=== PATIENT | male | born 1995 | race Caucasian/White ===

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

== ENCOUNTER 2017-05-04 20:05 | Emergency (ER) | payer BC ==
[~2017-05-04] VITALS: Ht 176.5 cm; Wt 78.6 kg
[~2017-05-04 20:05] MED LIST: AMPH10TA2 PO; AMPH30CA3 PO
[2017-05-04 20:16] VITALS: TEMP 36.6; Ht 176.5 cm; Wt 78.6 kg
--- NOTE | 2017-05-04 20:43 | EMERGENCY ROOM VISIT NOTE ---
History Report prepared by Tu: Dusty Middleton Under the Supervision of: Dr. Addy Bernstein M.D. First contact with patient: 20:30 Chief Complaint: CARDIAC ASSESSMENT Stated Complaint: CHEST PAIN History of Present Illness The patient is a 22 year old male who presents to the Emergency Room with complaints of episodes of chest pain that started 2 weeks ago. He says that the episodes of chest pain can last sometimes for a few hours at a time, and when the pain is there, it waxes and wanes. The patient states that the pain stays around a 5 out of 10 in severity, and can get up to a 7 or 8 out of 10. He notes that the pain does not radiate from the center of his chest. The patient says that he almost passed out in class today, so he went to [facility], and had an EKG there, and was told to come here for further evaluation. The patient states that activity can bring on the pain, and laughing worsened the pain earlier today. He says that he has to rest when the pain comes on. He says that he never had pain like this before. The patient states that he went on a bus trip to [place] a month ago. He notes that he has not had any increased activity recently. The patient notes no family or personal history of blood clots in the legs or lungs. He says that he has ADHD, but has not taken his Adderall in 3 days. Source of History: patient Onset: 2 weeks ago Position: chest Symptom Intensity: can get up to a 7 or 8 out of 10 in severity Timing: other (episodes) Modifying Factors (Worsening): exertion, other (laughing) Modifying Factors (Relieving): rest Note: Associated symptoms: Almost passed out in class earlier today. No radiation of pain. Review of Systems See HPI for pertinent positives & negatives. A total of 10 systems reviewed and were otherwise negative. Past Medical & Surgical Medical Problems: (1) ADHD (attention deficit hyperactivity disorder) Family History No pertinent family history Social History Smoking Status: Never Smoker Marital Status: single Housing Status: lives with roommate Occupation Status: [employer] student Current/Historical Medications Scheduled Amphetamine-Dextroamphetamine 30MG (Adderall Xr 30MG), 30 MG PO QAM Scheduled PRN Amphetamine-Dextroamphetamine 10MG (Adderall 10MG), 10 MG PO HS PRN for PT DISCRETION Allergies Coded Allergies: No Known Allergies (Unverified , 05/04/17) Physical Exam Vital Signs Date Time Temp Pulse Resp B/P (MAP) Pulse Ox O2 Delivery O2 Flow Rate FiO2 05/04/17 22:38 73 112/71 97 05/04/17 21:26 76 121/72 96 Room Air 05/04/17 20:46 97 Room Air 05/04/17 20:30 87 05/04/17 20:16 36.6 91 18 115/78 95 Room Air Physical Exam GENERAL: Patient is in no acute distress. HEENT: No acute trauma, normocephalic atraumatic, mucous membranes moist, no nasal congestion, no scleral icterus. NECK: No stridor, no adenopathy, no meningismus, trachea is midline. LUNGS: Clear to auscultation bilaterally, no wheeze, no rhonchi, breath sounds equal. HEART: Without murmurs gallops or rubs, regular rate and rhythm. CHEST: Nontender chest wall. ABDOMEN: Soft, nontender, bowel sounds positive, no hernias, no peritonitis. EXTREMITIES: No cyanosis or edema, full range of motion of all the joints without pain or difficulty, no signs for acute trauma. NEUROLOGIC: Oriented x 3, no acute motor or sensory deficits, no focal weakness. SKIN: No rash, no jaundice, no diaphoresis. Medical Decision & Procedures ER Provider Diagnostic Interpretation: Radiology results as stated below per my review and radiologist interpretation: SINGLE VIEW CHEST CLINICAL HISTORY: Atypical chest pain. FINDINGS: An AP, portable, upright chest radiograph is obtained. No prior studies are available for comparison at the time of dictation. The examination is degraded by portable technique and patient rotation. The cardiomediastinal silhouette is unremarkable. The lungs and pleural spaces are clear. No pneumothorax is seen. The bony thorax is grossly intact. IMPRESSION: No active disease in the chest. Electronically signed by: Addy Johnson M.D. 05/04/2017 9:00 PM Dictated Date/Time: 05/04/2017 9:[address] ANGIOGRAM OF THE CHEST COMBO CLINICAL HISTORY: Atypical chest pain. COMPARISON STUDY: Chest x-ray dated 05/04/2017. TECHNIQUE: Before and following the IV administration of 116 cc of Optiray 320, CT angiogram of the chest was performed from the thoracic inlet to the upper abdomen utilizing the dissection protocol. Images are reviewed in the axial, sagittal, and coronal planes. 3-D MIPS images are created and assessed. IV contrast was administered without complication. A dose lowering technique was utilized adhering to the principles of ALARA. CT DOSE: 540.12 mGy.cm FINDINGS: Thyroid: Imaged portions of the thyroid gland are normal in size and attenuation. Thoracic aorta: No intramural hematoma is identified on the unenhanced series. The thoracic aorta is normal in caliber and demonstrates standard 3-vessel arch anatomy. No dissection is seen. The arch vessels are widely patent. Pulmonary vasculature: The pulmonary trunk is normal in caliber. There are no central filling defects identified in the pulmonary vessels to suggest pulmonary embolus. Note that this examination was not specifically protocoled to assess for pulmonary emboli. Heart: The heart is normal in size and configuration, and without pericardial effusion. Lungs and pleural spaces: The lungs and pleural spaces are clear. The trachea and central airways are patent. Mediastinum: There is no mediastinal lymphadenopathy. Nadya: Clear. Axillae: There is no axillary lymphadenopathy. Upper abdomen: Partially visualized upper abdominal viscera is within normal limits. Skeletal structures: No lytic or blastic bony lesions are seen. IMPRESSION: 1. There is no aneurysm or dissection identified involving the thoracic aorta. 2. The lungs are clear Electronically signed by: Addy Johnson M.D. 05/04/2017 9:58 PM Dictated Date/Time: 05/04/2017 9:55 PM Laboratory Results 05/04/17 20:25 05/04/17 20:25 Test 05/04/17 20:25 Red Blood Count 5.28 M/uL (4.7-6.1) Mean Corpuscular Volume 89.8 fL (80-100) Mean Corpuscular Hemoglobin 31.4 pg (25-34) Mean Corpuscular Hemoglobin Concent 35.0 g/dl (32-36) RDW Standard Deviation 38.9 fL (36.4-46.3) RDW Coefficient of Variation 11.8 % (11.5-14.5) Mean Platelet Volume 10.8 fL (7.4-10.4) Anion Gap 6.0 mmol/L (3-11) Est Creatinine Clear Calc Drug Dose 90.7 ml/min Estimated GFR () 89.4 Estimated GFR (Non- 77.1 BUN/Creatinine Ratio 14.9 (10-20) Calcium Level 9.2 mg/dl (8.5-10.1) Total Bilirubin 0.9 mg/dl (0.2-1) Aspartate Amino Transf (AST/SGOT) 18 U/L (15-37) Alanine Aminotransferase (ALT/SGPT) 23 U/L (12-78) Alkaline Phosphatase 71 U/L (45-117) Troponin I < 0.015 ng/ml (0-0.045) Total Protein 7.7 gm/dl (6.4-8.2) Albumin 4.4 gm/dl (3.4-5.0) Globulin 3.3 gm/dl (2.5-4.0) Albumin/Globulin Ratio 1.3 (0.9-2) D-dimer value was 64. Laboratory results reviewed by me. ECG Indication: chest pain Rate (beats per minute): 72 Rhythm: normal sinus Findings: no acute ischemic change, no ectopy ED Course 2030: The patient was evaluated in room C7. A complete history and physical exam was performed. 2215: Reevaluated the patient and he is resting. Discussed results and discharge instructions: he verbalized understanding and agreement. The patient is ready for discharge. Medical Decision Differential diagnosis includes but is not limited to musculoskeletal pain, pericarditis, SD, aortic dissection, PE, pneumonia. There is no leukocytosis or worrisome anemia. No significant electrolyte abnormality, kidney failure, hepatitis. D-dimer testing is negative. This certainly makes PE less likely. Chest film does not show evidence for mediastinal widening, pneumonia or pneumothorax. EKG shows a normal sinus rhythm, no acute ischemia. Cardiac enzyme testing 1 is not consistent with acute cardiac injury. Chest CT does not show evidence for aortic dissection. The patient presents with nonreproducible chest pain. The pain has been present for 2 weeks. Workup here is benign. The patient has been reassured. The pain is likely musculoskeletal. Conservative measures were advised. If worsening, he can return. Medication Reconcilliation Current Medication List: was personally reviewed by me Blood Pressure Screening Patient's blood pressure: Normal blood pressure Impression Primary Impression: Precordial chest pain Scribe Attestation The scribe's documentation has been prepared under my direction and personally reviewed by me in its entirety. I confirm that the note above accurately reflects all work, treatment, procedures, and medical decision making performed by me. Departure Information Dispostion Home / Self-Care Referrals [facility] (PCP) Forms IMPORTANT VISIT INFORMATION Patient Instructions My [facility] [address] Additional Instructions motrin 600 mg 3x per day for 5 days heat to the chest wall several times per day rest no exercise or strenuous activity for 1 week return if worsening imaging and lab testing and ECG today were all ok
[2017-05-04 20:48] LABS: HEMATOCRIT 47.4 % (42-52); MEAN CELL VOLUME 89.8 fL (80-100); MEAN CORPUSCULAR HEMOGLOBIN 31.4 pg (25-34); MEAN PLATELET VOLUME 10.8 fL (7.4-10.4); PLATELET COUNT 255 K/uL (130-400); RED BLOOD COUNT 5.28 M/uL (4.7-6.1); WHITE BLOOD COUNT 10.04 K/uL (4.8-10.8)
--- NOTE | 2017-05-04 21:01 | DIAGNOSTIC IMAGING REPORT ---
SINGLE VIEW CHEST CLINICAL HISTORY: Atypical chest pain. FINDINGS: An AP, portable, upright chest radiograph is obtained. No prior studies are available for comparison at the time of dictation. The examination is degraded by portable technique and patient rotation. The cardiomediastinal silhouette is unremarkable. The lungs and pleural spaces are clear. No pneumothorax is seen. The bony thorax is grossly intact. IMPRESSION: No active disease in the chest. Electronically signed by: Addy Johnson M.D. 05/04/2017 9:00 PM Dictated Date/Time: 05/04/2017 9:00 PM
[2017-05-04 21:06] LABS: ALT/SGPT 23 U/L (12-78); BLOOD UREA NITROGEN 20 mg/dl (7-18); BUN/CREATININE RATIO 14.9 (10-20); CALCIUM 9.2 mg/dl (8.5-10.1); CARBON DIOXIDE 27 mmol/L (21-32); CHLORIDE 107 mmol/L (98-107); CREATININE 1.32 mg/dl (0.60-1.40); GLUCOSE 86 mg/dl (70-99); SODIUM 140 mmol/L (136-145)
[2017-05-04 21:11] LABS: ALB/GLOB RATIO 1.3 (0.9-2); ALKALINE PHOSPHATASE 71 U/L (45-117); AST/SGOT 18 U/L (15-37)
[2017-05-04] MEDS ORDERED: OPTIRAY 320 IV PRN (21:45)
--- NOTE | 2017-05-04 21:59 | DIAGNOSTIC IMAGING REPORT ---
CT ANGIOGRAM OF THE CHEST COMBO CLINICAL HISTORY: Atypical chest pain. COMPARISON STUDY: Chest x-ray dated 05/04/2017. TECHNIQUE: Before and following the IV administration of 116 cc of Optiray 320, CT angiogram of the chest was performed from the thoracic inlet to the upper abdomen utilizing the dissection protocol. Images are reviewed in the axial, sagittal, and coronal planes. 3-D MIPS images are created and assessed. IV contrast was administered without complication. A dose lowering technique was utilized adhering to the principles of ALARA. CT DOSE: 540.12 mGy.cm FINDINGS: Thyroid: Imaged portions of the thyroid gland are normal in size and attenuation. Thoracic aorta: No intramural hematoma is identified on the unenhanced series. The thoracic aorta is normal in caliber and demonstrates standard 3-vessel arch anatomy. No dissection is seen. The arch vessels are widely patent. Pulmonary vasculature: The pulmonary trunk is normal in caliber. There are no central filling defects identified in the pulmonary vessels to suggest pulmonary embolus. Note that this examination was not specifically protocoled to assess for pulmonary emboli. Heart: The heart is normal in size and configuration, and without pericardial effusion. Lungs and pleural spaces: The lungs and pleural spaces are clear. The trachea and central airways are patent. Mediastinum: There is no mediastinal lymphadenopathy. Nadya: Clear. Axillae: There is no axillary lymphadenopathy. Upper abdomen: Partially visualized upper abdominal viscera is within normal limits. Skeletal structures: No lytic or blastic bony lesions are seen. IMPRESSION: 1. There is no aneurysm or dissection identified involving the thoracic aorta. 2. The lungs are clear. Electronically signed by: Addy Johnson M.D. 05/04/2017 9:58 PM Dictated Date/Time: 05/04/2017 9:55 PM
[2017-05-04 22:38] VITALS: BP 112/71; PULSE 73; O2SAT 97
== END 2017-05-04 22:40 | disposition home or self-care (01) ==
LOC: C.EDB 20:07 → C.EDC 22:40
DX: R07.2 Precordial pain (principal); F90.9 Attention-deficit hyperactivity disorder, unspecified type; Z79.899 Other long term (current) drug therapy

== ENCOUNTER 2017-08-18 22:58 | Emergency (ER) | payer BC, OTHER ==
[~2017-08-18] VITALS: Ht 177.8 cm; Wt 79.4 kg
[2017-08-18 23:06] VITALS: TEMP 36.7; Ht 177.8 cm; Wt 79.4 kg
[2017-08-19] MEDS ORDERED: GI COCKTAIL PO STA (00:35)
[2017-08-19] MEDS ORDERED: ONDANSETRON 4MG OD TAB PO STA (00:35)
--- NOTE | 2017-08-19 00:38 | EMERGENCY ROOM VISIT NOTE ---
History Report prepared by Tu: Tiki Gomez Under the Supervision of: Dr. Zac Henry M.D. First contact with patient: 23:43 Chief Complaint: CARDIAC ASSESSMENT Stated Complaint: CHEST PAIN Nursing Triage Summary: chest pain/heaviness states he has had this problem before and it was found to be anxiety related states he is prescribed xanax and that usually helps but tonight it didn't help states he wants to make sure nothing else is wrong History of Present Illness The patient is a 22 year old male with a past medical history of ADHD and anxiety who presents to the ED with a cc of constant chest pain beginning 6 hours ago. The patient states that he was doing physical exercise when it came on. He states that sometimes he gets chest pain when he has bad anxiety. He states that he took 2 mg of Xanax to help, but it didn't. He states that the pain is centralized and sharp. Negative cough, nausea, vomiting, abdominal pain , recent travel, and history of a DVT or PE. The patient notes that he takes Adderall for his ADHD. Source of History: patient Onset: 6 hours ago Position: chest Quality: sharp Timing: constant Associated Symptoms: No cough, No nausea, No vomiting, No abdominal pain Review of Systems See HPI for pertinent positives and negatives. A total of ten systems were reviewed and were otherwise negative. Past Medical & Surgical Medical Problems: (1) ADHD (attention deficit hyperactivity disorder) Family History No pertinent family history Social History Smoking Status: Never Smoker Alcohol Use: other (once a week) Drug Use: none Marital Status: single Housing Status: lives with roommate Occupation Status: [employer] student Current/Historical Medications Scheduled Amphetamine-Dextroamphetamine 30MG (Adderall Xr 30MG), 30 MG PO QAM Scheduled PRN Amphetamine-Dextroamphetamine 10MG (Adderall 10MG), 10 MG PO HS PRN for PT DISCRETION Allergies Coded Allergies: No Known Allergies (Unverified , 08/18/17) Physical Exam Vital Signs Date Time Temp Pulse Resp B/P (MAP) Pulse Ox O2 Delivery O2 Flow Rate FiO2 08/19/17 02:23 95 16 124/67 99 08/19/17 00:31 64 16 116/47 97 Room Air 08/18/17 23:06 36.7 80 16 123/79 96 Room Air Physical Exam GENERAL: Awake, alert, well-appearing, NAD HENT: Normocephalic, atraumatic. EYES: Normal conjunctiva. Sclera non-icteric. NECK: Supple. No nuchal rigidity. FROM. RESPIRATORY: CTAB, no rhonchi, wheezing, crackles CARDIAC: RRR, no MRG ABDOMEN: Soft, NTND, BS+ MSK: No chest wall TTP, no LE edema NEURO: GCS 15, CN 2-12 intact, moves all 4s on command SKIN: No rash or jaundice noted. Medical Decision & Procedures Laboratory Results Test 08/19/17 00:55 08/19/17 01:26 Bedside Troponin I < 0.030 ng/ml (0-0.045) Bedside Hemoglobin 13.6 g/dl (14.0-18.0) Bedside Hematocrit 40 % (42-52) Bedside Sodium 143 mEq/L (135-144) Bedside Potassium 3.4 mEq/L (3.3-5.0) Bedside Chloride 105 mEq/L (101-112) Bedside Total CO2 25 mEq/l (24-31) Anion Gap 17.0 mmol/L (16-25) Bedside Blood Urea Nitrogen 20 mg/dl (7-18) Bedside Creatinine 1.1 mg/dl Bedside Glucose (other) 88 mg/dl (70-99) Bedside Ionized Calcium ([place]) 1.18 mmol/l Laboratory results reviewed by me Medications Administered Medications (Trade) Dose Ordered Sig/Derrek Route Start Time Stop Time Status Last Admin Dose Admin Miscellaneous Medication (Gi Cocktail) 24 ml ONE STAT PO 08/19/17 00:35 08/19/17 00:36 DC 08/19/17 00:35 24 ML Famotidine (Pepcid Tab) 20 mg NOW ONCE PO 08/19/17 00:45 08/19/17 00:46 DC 08/19/17 01:01 20 MG Ondansetron HCl (Zofran Odt) 4 mg NOW STAT PO 08/19/17 00:35 08/19/17 00:37 DC 08/19/17 01:01 4 MG ECG Indication: chest pain Rate (beats per minute): 69 Rhythm: normal sinus Findings: other (normal intervals, normal axis, no STS or TWI) Change: Patient's electrocardiogram interpreted by me. ED Course 0008: The patient was evaluated in room B9. A complete history and physical exam was performed. []: I reevaluated the patient. Discussed results and discharge instructions: He verbalized understanding and agreement. The patient is ready for discharge. Medical Decision The patient is a 22 year old male with a past medical history of ADHD and anxiety who presents to the ED with a cc of constant chest pain beginning 6 hours ago. Differential diagnosis: Etiologies such as cardiac ischemia, aortic dissection, pulmonary embolism, pneumonia, pneumothorax, musculoskeletal, infections, pericarditis, myocarditis , esophageal rupture, gastrointestinal, as well as others were entertained. Patient was seen and evaluated the bedside. Patient is a prior history of ADHD and anxiety. Patient states that he takes Xanax for when he has chest discomfort. Patient has no prior history of any cardiac disease. Patient states that he did take an extra Xanax. Patient does seem somewhat out of it and I believe this is related to the extra Xanax dose that he took. Patient has no reproducible chest discomfort and the patient denies any cough. No chest x-ray was obtained at this time. Patient did have an EKG showed no acute abnormality and was nonischemic. Patient did have a [id number] troponin which was negative. Patient's BNP was fairly normal. I did reassess the patient after he was given symptomatic treatment. Patient was feeling improved. Patient was told instructed he needs to be careful when taking his Xanax and she'll take as prescribed. HEART score < 4, less likely ACS. PERC neg. Less likely PE. Patient was deemed suitable for outpatient follow-up and treatment this time. Patient was given strict follow-up, discharge, and return precautions. All questions were answered. Patient was deemed suitable for outpatient follow-up at this time. Patient agreed with the plan of care and was safely discharged home. The chart was completed utilizing [employer] Speech voice recognition software. Grammatical errors, random word insertions, pronoun errors, and incomplete sentences are an occasional consequence of this system due to software limitations, ambient noise, and hardware issues. Any formal questions or concerns about the content, text, or information contained within the body of this dictation should be directly addressed to the physician for clarification. Medication Reconcilliation Current Medication List: was personally reviewed by me Blood Pressure Screening Patient's blood pressure: Normal blood pressure Blood pressure disposition: Did not require urgent referral Impression Primary Impression: Chest pain Scribe Attestation The scribe's documentation has been prepared under my direction and personally reviewed by me in its entirety. I confirm that the note above accurately reflects all work, treatment, procedures, and medical decision making performed by me. Departure Information Referrals [facility] (PCP) Forms IMPORTANT VISIT INFORMATION Patient Instructions Chest Pain - [facility] Additional Instructions Please return to the emergency department if you have worsening or recurrent symptoms not amenable to at-home treatment. Please call for a follow-up appointment with her primary care physician. Please take your medications as prescribed. If you have other concerns and/or complaints please feel free to also call your primary care physician's office or return the ED for further evaluation, management, and treatment. Please be careful when taking your benzodiazepine Xanax. This can cause you to be very sedated and sleepy. You may take 600 mg Ibuprofen every 6 hours as needed for pain with food for no more than 2 consecutive days. You may take tylenol 1000 mg every 6 hours as needed for pain. You may take motrin and tylenol separately or at the same time. Take your medications as prescribed. You have been examined and treated today on an emergency basis only. This is not a substitute for, or an effort to provide, complete comprehensive medical care. It is impossible to recognize and treat all injuries or illnesses in a single emergency department visit. It is therefore important that you follow up closely with [facility], your PCP, and/or your specialist(s). Call as soon as possible for an appointment. Thank you for your time and consideration. I look forward to speaking with you again soon. Please don't hesitate to call us if you have any questions. Problem Qualifiers Primary Impression: Chest pain Chest pain type: unspecified Qualified Codes: R07.9 - Chest pain, unspecified
[2017-08-19] MEDS ORDERED: FAMOTIDINE 20 MG TAB PO ONE (00:45)
[2017-08-19] MEDS ORDERED: ALUMINUM/MAGNESIUM SUSP 30 ML UDC ONE (00:55)
[2017-08-19] MEDS ORDERED: LIDOCAINE HCL 2% VISC SOLN 20 ML UDC ONE (00:56)
[2017-08-19 01:44] LABS: ISTAT CREATININE 1.1 mg/dl; ISTAT IONIZED CALCIUM 1.18 mmol/l; ISTAT POTASSIUM 3.4 mEq/L (3.3-5.0)
[2017-08-19 02:23] VITALS: BP 124/67; PULSE 95; O2SAT 99
== END 2017-08-19 02:26 | disposition home or self-care (01) ==
LOC: C.EDB 23:01
DX: R07.9 Chest pain, unspecified (principal); F41.9 Anxiety disorder, unspecified; F90.9 Attention-deficit hyperactivity disorder, unspecified type; Z79.899 Other long term (current) drug therapy

== ENCOUNTER 2017-09-11 00:43 | Emergency (ER) | payer OTHER ==
[~2017-09-11] VITALS: Ht 177.8 cm; Wt 83.6 kg
[2017-09-11 00:48] VITALS: TEMP 36.9; Ht 177.8 cm; Wt 83.6 kg
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
[2017-09-11 02:33] VITALS: BP 140/71; PULSE 81; O2SAT 98
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
== END 2017-09-11 02:34 | disposition home or self-care (01) ==
LOC: C.EDB 00:45
DX: S09.90XA Unspecified injury of head, initial encounter (principal); T76.11XA Adult physical abuse, suspected, initial encounter; S09.93XA Unspecified injury of face, initial encounter; W50.0XXA Accidental hit or strike by another person, initial encounter; F90.9 Attention-deficit hyperactivity disorder, unspecified type

== ENCOUNTER 2017-10-05 18:17 | Emergency (ER) | payer OTHER ==
[~2017-10-05] VITALS: Ht 177.8 cm; Wt 81.8 kg
[2017-10-05 18:19] VITALS: TEMP 37; Ht 177.8 cm; Wt 81.8 kg
[2017-10-05 19:11] VITALS: BP 122/67; PULSE 93; O2SAT 95
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
== END 2017-10-05 19:12 | disposition home or self-care (01) ==
LOC: C.EDB 18:19 → C.EDA 19:12
DX: R51 Headache (principal); F90.9 Attention-deficit hyperactivity disorder, unspecified type

== ENCOUNTER 2018-03-09 11:38 | Emergency (ER) | payer OTHER ==
[~2018-03-09] VITALS: Ht 175.3 cm; Wt 85.2 kg
[2018-03-09 11:40] VITALS: TEMP 36.8; Ht 175.3 cm; Wt 85.2 kg
[2018-03-09] MEDS ORDERED: FAMOTIDINE 20MG/5ML IV PUSH IV STA (12:28)
--- NOTE | 2018-03-09 12:41 | EMERGENCY ROOM VISIT NOTE ---
History First contact with patient: 12:04 Chief Complaint: CHEST PAIN Stated Complaint: CHEST PAIN Nursing Triage Summary: Went to [facility] today for chest pain that he had when he woke up. Stabbing , uncomfortable with movement or breathing. States happened before "but never this bad". History of Present Illness The patient is a 23 year old male who presents to the Emergency Room with complaints of chest pain. States pain started this am when he woke up. States pain is sharp, nonradiating. Pain is worse with movement, laying down, and deep breath. No hx of prior similar episodes. Patient states he did go out and drink alcohol last night as well as smoke cigarettes and he is unsure if does not contribute infected. Patient denied any recent illness including fevers chills, cough or cold. Patient states he did recently drive from [place] to [email or web address] to start school 6 days ago. States they did stop twice and get out, however states this is a [address]. Patient denies any family history of significant heart problems. Patient went to [facility] earlier today and had an EKG and a chest x-ray done. He was then sent to the ER for additional evaluation. Review of Systems See HPI for pertinent positives & negatives. A total of 10 systems reviewed and were otherwise negative. Past Medical/Surgical History Medical Problems: (1) ADHD (attention deficit hyperactivity disorder) Family History No pertinent family history Social History Smoking Status: Never Smoker Alcohol Use: other Drug Use: none Marital Status: single Housing Status: lives with roommate Occupation Status: [employer] student Current/Historical Medications Scheduled Amphetamine-Dextroamphetamine 30MG (Adderall Xr 30MG), 30 MG PO QAM Scheduled PRN Amphetamine-Dextroamphetamine 10MG (Adderall 10MG), 10 MG PO AFTERNOON PRN for Focus Physical Exam Vital Signs Date Time Temp Pulse Resp B/P (MAP) Pulse Ox O2 Delivery O2 Flow Rate FiO2 03/09/18 15:00 92 17 136/83 99 03/09/18 12:48 96 16 150/83 99 Room Air 03/09/18 12:10 98 Room Air 03/09/18 12:01 94 03/09/18 11:40 36.8 103 17 124/83 96 Room Air Physical Exam GENERAL: alert, well appearing, well nourished, no distress, non-toxic EYE EXAM: normal conjunctiva, PERRL and EOM's grossly intact OROPHARYNX: no exudate, no erythema, lips, buccal mucosa, and tongue normal and mucous membranes are moist NECK: supple, no nuchal rigidity, no adenopathy, non-tender LUNGS: Clear to auscultation. Normal chest wall mechanics, no w/r/r HEART: no murmurs, S1 normal and S2 normal, no reproducible chest wall tenderness ABDOMEN: abdomen soft, non-tender, normo-active bowel sounds, no masses, no rebound or guarding. BACK: Back is symmetrical on inspection and there is no deformity, no midline tenderness, no CVA tenderness. SKIN: no rashes and no bruising UPPER EXTREMITIES: upper extremities are grossly normal. LOWER EXTREMITIES: No pitting edema. NEURO EXAM: Normal sensorium, cranial nerves II-XII grossly intact, normal speech, no gross weakness of arms, no gross weakness of legs. Gross sensation intact. Medical Decision & Procedures Laboratory Results 03/09/18 12:10 Red Blood Count 5.10, Mean Corpuscular Volume 89.8, Mean Corpuscular Hemoglobin 31.8, Mean Corpuscular Hemoglobin Concent 35.4, Mean Platelet Volume 11.0, Neutrophils (%) (Auto) 84.5, Lymphocytes (%) (Auto) 8.9, Monocytes (%) (Auto) 5.8, Eosinophils (%) (Auto) 0.3, Basophils (%) (Auto) 0.2, Neutrophils # (Auto) 12.68, Lymphocytes # (Auto) 1.33, Monocytes # (Auto) 0.87, Eosinophils # (Auto) 0.04, Basophils # (Auto) 0.03 03/09/18 12:10 Test 03/09/18 12:10 03/09/18 13:25 White Blood Count 15.00 K/uL (4.8-10.8) Red Blood Count 5.10 M/uL (4.7-6.1) Hemoglobin 16.2 g/dL (14.0-18.0) Hematocrit 45.8 % (42-52) Mean Corpuscular Volume 89.8 fL (80-100) Mean Corpuscular Hemoglobin 31.8 pg (25-34) Mean Corpuscular Hemoglobin Concent 35.4 g/dl (32-36) Platelet Count 221 K/uL (130-400) Mean Platelet Volume 11.0 fL (7.4-10.4) Neutrophils (%) (Auto) 84.5 % Lymphocytes (%) (Auto) 8.9 % Monocytes (%) (Auto) 5.8 % Eosinophils (%) (Auto) 0.3 % Basophils (%) (Auto) 0.2 % Neutrophils # (Auto) 12.68 K/uL (1.4-6.5) Lymphocytes # (Auto) 1.33 K/uL (1.2-3.4) Monocytes # (Auto) 0.87 K/uL (0.11-0.59) Eosinophils # (Auto) 0.04 K/uL (0-0.5) Basophils # (Auto) 0.03 K/uL (0-0.2) RDW Standard Deviation 40.1 fL (36.4-46.3) RDW Coefficient of Variation 12.2 % (11.5-14.5) Immature Granulocyte % (Auto) 0.3 % Immature Granulocyte # (Auto) 0.05 K/uL (0.00-0.02) Anion Gap 8.0 mmol/L (3-11) Est Creatinine Clear Calc Drug Dose 116.0 ml/min Estimated GFR () 111.9 Estimated GFR (Non- 96.5 BUN/Creatinine Ratio 14.2 (10-20) Calcium Level 9.4 mg/dl (8.5-10.1) Magnesium Level 2.2 mg/dl (1.8-2.4) Total Bilirubin 0.7 mg/dl (0.2-1) Aspartate Amino Transf (AST/SGOT) 19 U/L (15-37) Alanine Aminotransferase (ALT/SGPT) 27 U/L (12-78) Alkaline Phosphatase 80 U/L (45-117) Troponin I < 0.015 ng/ml (0-0.045) C-Reactive Protein < 0.29 mg/dl (0-0.29) Pro-B-Type Natriuretic Peptide 15 pg/ml (0-450) Total Protein 7.8 gm/dl (6.4-8.2) Albumin 4.5 gm/dl (3.4-5.0) Globulin 3.3 gm/dl (2.5-4.0) Albumin/Globulin Ratio 1.4 (0.9-2) Lipase 66 U/L (73-393) Thyroid Stimulating Hormone (TSH) 0.565 uIu/ml (0.300-4.500) Chemistry Specimen Hemolysis Lyme Disease IgG Antibody NEG (NEG) Lyme Disease IgM Antibody NEG (NEG) Prothrombin Time 10.7 SECONDS (9.0-12.0) Prothromb Time International Ratio 1.0 (0.9-1.1) Activated Partial Thromboplast Time 29.7 SECONDS (21.0-31.0) Partial Thromboplastin Ratio 1.1 D-Dimer < 190 ug/L FEU (0-500) Medications Administered Medications (Trade) Dose Ordered Sig/Derrek Route Start Time Stop Time Status Last Admin Dose Admin Famotidine (Pepcid 20mg Iv Push) 20 mg ONE STAT IV 03/09/18 12:28 03/09/18 12:32 DC 03/09/18 12:47 20 MG Ketorolac Tromethamine (Toradol Inj) 30 mg NOW STAT IV 03/09/18 14:18 03/09/18 14:19 DC 03/09/18 14:25 30 MG Al Hydroxide/Mg Hydroxide (Maalox Susp) 30 ml NOW STAT PO 03/09/18 14:34 03/09/18 14:35 DC 03/09/18 14:47 30 ML ED Course 1255: Outpatient record obtained from [facility]. Patient had a two-view chest x-ray performed at [facility]. Chest x-ray was read by Dusty Coffey MD. Findings: The cardiac silhouette measures within normal limits. The hilar and mediastinal structures appear unremarkable. The lungs are clear and normally inflated without evidence for pneumothorax. The osseous structures appear grossly intact. No conventional radiographic evidence for pericardial effusion is demonstrated. Impression: No evidence of acute cardiopulmonary disease, clinical disease, tuberculosis. 1430: Patient updated on all results at bedside. Patient states he is feeling improved although still having some discomfort. Bedside ultrasound of the patient's heart performed. Normal ejection fraction noted including normal measurement of EPSS, no pericardial fluid, no gross wall motion abnormalities. Patient states he did vomit this morning which he thinks is due to being hung over and the alcohol consumption last night. Medical Decision Differential diagnosis: Etiologies such as cardiac ischemia, aortic dissection, pulmonary embolism, pneumonia, pneumothorax, musculoskeletal, infections, pericarditis, myocarditis , esophageal rupture, gastrointestinal, as well as others were entertained. Patient well-appearing here despite complaints. Hemodynamically stable throughout. Patient's labs and imaging reassuring. Mild leukocytosis noted and more likely related to vomiting this morning. I do not suspect additional occult infection. Patient's history and physical not consistent with pericarditis, myocarditis, ACS, I do not suspect PE or other acute vascular etiology. Patient's lungs clear to auscultation and outpatient chest x-ray did not reveal effusion or pneumonia. Patient with no other recent trauma or illness. Bedside echo reassuring. Patient's symptoms did improve with use of GI medications for possible GI origin of chest pain. Discussed with patient alcohol use, acidic food in his diet, and avoidance of these as well as close follow-up with family doctor or [facility]. Discussed with him symptoms to watch and return for, he verbalized understanding was agreeable with plan. Patient tolerating sips of p.o. here, ambulatory with a steady gait and well-appearing at time of discharge. HEART score 0 Medication Reconcilliation Current Medication List: was personally reviewed by me Blood Pressure Screening Patient's blood pressure: Normal blood pressure Impression Primary Impression: Chest pain Additional Impression: GERD (gastroesophageal reflux disease) Departure Information Dispostion Home / Self-Care Condition GOOD Referrals [facility] (PCP) Patient Instructions My [facility] Additional Instructions Please follow-up with your family doctor as a precaution. Please consider using [id number] acid reducing medication over the course of the next week such as Pepcid or Prilosec. Please avoid acidic foods in your diet such as alcohol, coffee, soda, tomato based products, and citrus fruits. Please drink plenty of water. If you have any recurrent pain, develop trouble breathing, numbness or tingling, dizziness, vomiting, noticed black or bloody stools, black out or pass out, or you have any other new concerns please return the emergency room immediately. Problem Qualifiers Primary Impression: Chest pain Chest pain type: unspecified Qualified Codes: R07.9 - Chest pain, unspecified Additional Impression: GERD (gastroesophageal reflux disease) Esophagitis presence: esophagitis presence not specified Qualified Codes: K21.9 - Gastro-esophageal reflux disease without esophagitis
[2018-03-09 12:52] LABS: BASO % 0.2 %; BASO ABS # 0.03 K/uL (0-0.2); EOS % 0.3 %; EOS ABS # 0.04 K/uL (0-0.5); HEMATOCRIT 45.8 % (42-52); HEMOGLOBIN 16.2 g/dL (14.0-18.0); IG# 0.05 K/uL (0.00-0.02); LYMPH % 8.9 %; LYMPH ABS # 1.33 K/uL (1.2-3.4); MEAN CELL VOLUME 89.8 fL (80-100); MEAN CORPUSCULAR HEMOGLOBIN 31.8 pg (25-34); MEAN CORPUSCULAR HGB CONC 35.4 g/dl (32-36); MONO % 5.8 %; MONO ABS # 0.87 K/uL (0.11-0.59); NEUT % 84.5 %; NEUT ABS # 12.68 K/uL (1.4-6.5); PLATELET COUNT 221 K/uL (130-400); RED CELL DISTRIBUTION WIDTH CV 12.2 % (11.5-14.5); RED CELL DISTRIBUTION WIDTH SD 40.1 fL (36.4-46.3)
[2018-03-09 13:17] LABS: ALBUMIN 4.5 gm/dl (3.4-5.0); ALT/SGPT 27 U/L (12-78); AST/SGOT 19 U/L (15-37); BLOOD UREA NITROGEN 15 mg/dl (7-18); CALCIUM 9.4 mg/dl (8.5-10.1); CARBON DIOXIDE 25 mmol/L (21-32); CREATININE 1.09 mg/dl (0.60-1.40); GLUCOSE 83 mg/dl (70-99); POTASSIUM 4.3 mmol/L (3.5-5.1); SODIUM 140 mmol/L (136-145)
[2018-03-09 13:24] LABS: ALKALINE PHOSPHATASE 80 U/L (45-117); TOTAL PROTEIN 7.8 gm/dl (6.4-8.2)
[2018-03-09 14:01] LABS: PTT PATIENT 29.7 SECONDS (21.0-31.0)
[2018-03-09] MEDS ORDERED: KETOROLAC TROMETHAMINE 30 MG/ML VIAL IV STA (14:18)
[2018-03-09] MEDS ORDERED: ALUMINUM/MAGNESIUM SUSP 30 ML UDC PO STA (14:34)
[2018-03-09 15:00] VITALS: BP 136/83; PULSE 92; O2SAT 99
== END 2018-03-09 15:15 | disposition home or self-care (01) ==
LOC: C.EDB 11:40 → C.EDC 15:15
DX: R07.9 Chest pain, unspecified (principal); K21.9 Gastro-esophageal reflux disease without esophagitis; F90.9 Attention-deficit hyperactivity disorder, unspecified type